=== PATIENT | female | born 1935 | race Caucasian/White ===

== ENCOUNTER 2018-11-21 12:51 | Inpatient (IN) | payer BC ==
[~2018-11-21] VITALS: Ht 157.5 cm; Wt 41.9 kg
[2018-11-21 12:51] VITALS: BP_SYST 117
[2018-11-21 13:55] LABS: HEMOGLOBIN 12.4 g/dL (12.0-16.0); MEAN CORPUSCULAR HEMOGLOBIN 31 pg (27-31); MEAN CORPUSCULAR HGB CONC 34 % (32-36); MEAN CORPUSCULAR VOLUME 91 fL (79.0-98.0); PLATELET COUNT (AUTO) 336 K/uL (130-430); RED BLOOD CELL COUNT(AUTO) 3.97 MIL/uL (4.2-6.2); WHITE BLOOD COUNT (AUTO) 11.4 K/uL (4.8-10.8)
[2018-11-21 14:03] LABS: ALANINE AMINOTRANSFERASE 12 U/L (12-78); ALBUMIN 3.2 g/dL (3.4-4.8); ANION GAP 14 (5-15); ASPARTATE AMINOTRANSFERASE 17 U/L (10-37); CALCIUM 9.6 mg/dL (8.4-11.0); CHLORIDE 101 mmol/L (98-107); GLUCOSE 100 mg/dL (70-99); POTASSIUM 4.6 mmol/L (3.5-5.1); SODIUM SERUM 136 mmol/L (136-145); TOTAL BILIRUBIN 0.6 mg/dL (0.0-1.0); UREA NITROGEN, BLOOD 74 mg/dL (8-21)
[2018-11-21 14:23] LABS: BAND % (MANUAL) 4 % (0-6); BASOPHILS % (MANUAL) 0 % (0-2); EOSINOPHILS % (MANUAL) 0 % (0-7); LYMPHOCYTES % (MANUAL) 10 % (20-46); MONOCYTES % (MANUAL) 1 % (0-11)
[2018-11-21] MEDS ORDERED: CYM30 PO (14:38)
[2018-11-21] MEDS ORDERED: MELA3TAB PO (14:38)
[2018-11-21] MEDS ORDERED: PRO40 PO (14:38)
[2018-11-21] MEDS ORDERED: AMLO5TAB4 PO (14:38)
[2018-11-21] MEDS ORDERED: CITA40TA22 PO (14:38)
[2018-11-21] MEDS ORDERED: DONE10TA44 PO (14:38)
[2018-11-21] MEDS ORDERED: METO50TA7 PO (14:38)
[2018-11-21] MEDS ORDERED: SYN50 PO (14:38)
[2018-11-21 14:49] LABS: INR 0.9 (0.8-1.2); PROTHROMBIN TIME 9.5 SECS (9.5-12.5)
[2018-11-21 15:27] VITALS: BP_SYST 107
[2018-11-21 21:41] VITALS: BP_SYST 133
[2018-11-21] MEDS: DONEPEZIL HCL 5 MG TABLET (ARICEPT) PO SCH (21:47)
[2018-11-22 01:28] VITALS: BP_SYST 135
[2018-11-22 03:15] LABS: BILIRUBIN,URINE NEGATIVE (NEGATIVE); BLOOD, URINE 2+ (NEGATIVE); CLARITY/URINE CLEAR (CLEAR); COLOR,URINE YELLOW (YELLOW); GLUCOSE,URINE NEGATIVE (NEGATIVE); KETONES,URINE TRACE (NEGATIVE); LEUKOCYTE ESTERASE ,URINE 1+ (NEGATIVE); NITRITE, URINE NEGATIVE (NEGATIVE); PH,URINE 8.5 (5.0-8.0); PROTEIN URINE 3+ (NEGATIVE); UROBILINOGEN,URINE 0.2 (0.2-1.0)
[2018-11-22 03:21] LABS: WBC,URINE 80-100 /HPF (0-3)
[2018-11-22 03:22] LABS: BACTERIA,URINE MODERATE /HPF (None Seen)
[2018-11-22] MEDS: LEVOTHYROXINE SODIUM 0.05 MG TABLET PO SCH (06:03)
[2018-11-22 08:05] VITALS: BP_SYST 138
[2018-11-22] MEDS ORDERED: CITALOPRAM HYDROBROMIDE 20 MG TABLET PO SCH ×2 (09:00)
[2018-11-22] MEDS: amLODIPine BESYLATE 5 MG TABLET PO SCH (09:05)
[2018-11-22] MEDS: PANTOPRAZOLE SODIUM 40 MG TAB PO SCH (09:08)
[2018-11-22] MEDS: DULoxetine HCL 30 MG CAPSULE.DR (CYMBALTA) PO SCH (09:08)
[2018-11-22] MEDS: METOPROLOL SUCCINATE 50 MG TAB.SR.24H (TOPROL XL) PO SCH (09:08)
[2018-11-22] MEDS: cefTRIAXone 1 GM IVPB PREMIX 50 ML IV SCH (10:40)
[2018-11-22 12:56] VITALS: BP_SYST 119
[2018-11-22 16:54] VITALS: BP_SYST 122
[2018-11-22] MEDS: DONEPEZIL HCL 5 MG TABLET (ARICEPT) PO SCH (20:21)
[2018-11-22 20:30] VITALS: BP_SYST 118
[2018-11-22 23:08] VITALS: BP_SYST 106
[2018-11-23 05:37] VITALS: BP_SYST 103
[2018-11-23] MEDS: LEVOTHYROXINE SODIUM 0.05 MG TABLET PO SCH (06:06)
[2018-11-23 08:00] VITALS: BP_SYST 141
[2018-11-23] MEDS: METOPROLOL SUCCINATE 50 MG TAB.SR.24H (TOPROL XL) PO SCH (08:08)
[2018-11-23] MEDS: PANTOPRAZOLE SODIUM 40 MG TAB PO SCH (08:08)
[2018-11-23] MEDS: amLODIPine BESYLATE 5 MG TABLET PO SCH (08:09)
[2018-11-23] MEDS: DULoxetine HCL 30 MG CAPSULE.DR (CYMBALTA) PO SCH (08:09)
[2018-11-23] MEDS: cefTRIAXone 1 GM IVPB PREMIX 50 ML IV SCH (09:04)
[2018-11-23 11:57] LABS: ANION GAP 11 (5-15); CALCIUM 9.1 mg/dL (8.4-11.0); CHLORIDE 101 mmol/L (98-107); CREATININE 5.96 mg/dL (0.55-1.30); GLUCOSE 86 mg/dL (70-99); POTASSIUM 3.7 mmol/L (3.5-5.1); SODIUM SERUM 136 mmol/L (136-145); UREA NITROGEN, BLOOD 35 mg/dL (8-21)
[2018-11-23 12:00] VITALS: BP_SYST 154
[2018-11-23] MEDS ORDERED: CILOSTAZOL 50 MG TABLET (PLETAL) PO ONE (12:00)
[2018-11-23] MEDS ORDERED: ALBUTEROL SULFATE 0.083% 2.5 MG/3 ML VIAL.NEB INH PRN (12:00)
[2018-11-23 12:03] LABS: ALBUMIN 2.3 g/dL (3.4-4.8); ASPARTATE AMINOTRANSFERASE 14 U/L (10-37); TOTAL BILIRUBIN 0.4 mg/dL (0.0-1.0)
[2018-11-23 12:21] LABS: ALANINE AMINOTRANSFERASE 5 U/L (12-78)
[2018-11-23 16:00] VITALS: BP_SYST 113
[2018-11-23 16:05] VITALS: BP_SYST 154
[2018-11-23] MEDS: ACETAMINOPHEN 325 MG TABLET PO PRN ×2 (16:41→21:45)
[2018-11-23] MEDS ORDERED: AZITHROMYCIN 250 MG TABLET PO ONE (17:00)
[2018-11-23 20:00] VITALS: BP_SYST 110
[2018-11-23] MEDS ORDERED: ALBUMIN HUMAN 25% 200 ML IV ONE ×3 (20:00→20:15)
[2018-11-23] MEDS: DONEPEZIL HCL 5 MG TABLET (ARICEPT) PO SCH (21:43)
[2018-11-24 00:15] VITALS: BP_SYST 96
[2018-11-24 04:03] VITALS: BP_SYST 132
[2018-11-24] MEDS: LEVOTHYROXINE SODIUM 0.05 MG TABLET PO SCH (05:58)
[2018-11-24 07:02] LABS: BASOPHILS % (AUTO) 0.6 % (0.0-2.0); EOSINOPHILS # (AUTO) 0.2 K/uL (0.0-0.4); EOSINOPHILS % (AUTO) 2.9 % (0.0-4.0); HEMATOCRIT 27.8 % (36-48); HEMOGLOBIN 9.8 g/dL (12.0-16.0); LYMPHOCYTES # (AUTO) 1.1 K/uL (1.0-5.5); MEAN CORPUSCULAR HEMOGLOBIN 32 pg (27-31); MEAN CORPUSCULAR HGB CONC 35 % (32-36); MEAN CORPUSCULAR VOLUME 90 fL (79.0-98.0); MONOCYTES # (AUTO) 0.6 K/uL (0.0-1.0); MONOCYTES % (AUTO) 10.3 % (1.7-9.3); NEUTROPHILS # (AUTO) 3.8 K/uL (1.8-7.7); NEUTROPHILS % (AUTO) 66.2 % (40.0-70.0); PLATELET COUNT (AUTO) 284 K/uL (130-430); RED BLOOD CELL COUNT(AUTO) 3.09 MIL/uL (4.2-6.2); RED CELL DISTRIBUTION WIDTH 12.8 % (9.0-15.0); WHITE BLOOD COUNT (AUTO) 5.7 K/uL (4.8-10.8)
[2018-11-24 07:18] LABS: ALANINE AMINOTRANSFERASE 7 U/L (12-78); ALBUMIN 3.2 g/dL (3.4-4.8); ANION GAP 8 (5-15); ASPARTATE AMINOTRANSFERASE 13 U/L (10-37); CALCIUM 9.1 mg/dL (8.4-11.0); CHLORIDE 101 mmol/L (98-107); CREATININE 3.45 mg/dL (0.55-1.30); GLUCOSE 81 mg/dL (70-99); POTASSIUM 3.1 mmol/L (3.5-5.1); SODIUM SERUM 139 mmol/L (136-145); TOTAL BILIRUBIN 0.6 mg/dL (0.0-1.0); UREA NITROGEN, BLOOD 17 mg/dL (8-21)
[2018-11-24 08:00] VITALS: BP_SYST 124
[2018-11-24] MEDS ORDERED: POTASSIUM CHLORIDE 20 MEQ/PKT PACKET PO ONE (08:15)
[2018-11-24] MEDS ORDERED: AZITHROMYCIN 250 MG TABLET PO SCH (09:00)
[2018-11-24] MEDS ORDERED: NEPHROVITE, (FOLIC ACID/VITAMIN B COMP W-C 1 TAB) PO SCH (09:00)
[2018-11-24] MEDS ORDERED: CILOSTAZOL 50 MG TABLET (PLETAL) PO SCH (09:00)
[2018-11-24] MEDS: METOPROLOL SUCCINATE 50 MG TAB.SR.24H (TOPROL XL) PO SCH (09:02)
[2018-11-24] MEDS: DULoxetine HCL 30 MG CAPSULE.DR (CYMBALTA) PO SCH (09:03)
[2018-11-24] MEDS: PANTOPRAZOLE SODIUM 40 MG TAB PO SCH (09:03)
[2018-11-24] MEDS: amLODIPine BESYLATE 5 MG TABLET PO SCH (09:03)
[2018-11-24] MEDS: cefTRIAXone 1 GM IVPB PREMIX 50 ML IV SCH (09:04)
[2018-11-24] MEDS ORDERED: ALBU8.5H8 INH (10:29)
[2018-11-24] MEDS ORDERED: CEPH250C PO (10:30)
[2018-11-24] MEDS ORDERED: NEPH PO (10:31)
[2018-11-24 10:34] VITALS: BP_SYST 114
[2018-11-24 10:50] VITALS: BP_SYST 93
[2018-11-24 11:11] VITALS: BP_SYST 114
== END 2018-11-24 13:30 | disposition home or self-care (01) | DRG 682 ==
LOC: SED 12:51 → SMU 14:33 → STU 14:46 → SMU 11-22 13:04
PROVIDERS: ADMIT Internal Medicine Hospice and Palliative Medicine; ATTEND Internal Medicine Hospice and Palliative Medicine
PROC: 5A1D70Z Performance of Urinary Filtration, Intermittent, Less than 6 Hours Per Day (ICD-10-PCS; principal; 2018-11-21)
PROC: 5A1D70Z Performance of Urinary Filtration, Intermittent, Less than 6 Hours Per Day (ICD-10-PCS; 2018-11-22)
DX: I12.0 Hypertensive chronic kidney disease with stage 5 chronic kidney disease or end stage renal disease (principal); N18.6 End stage renal disease; N39.0 Urinary tract infection, site not specified; D63.1 Anemia in chronic kidney disease; F03.90 Unspecified dementia, unspecified severity, without behavioral disturbance, psychotic disturbance, mood disturbance, and anxiety; J44.9 Chronic obstructive pulmonary disease, unspecified; Z99.2 Dependence on renal dialysis; Z90.49 Acquired absence of other specified parts of digestive tract; I73.9 Peripheral vascular disease, unspecified
CPT/HCPCS: 36415; 70450-TC; 71045; 73502; 80053; 81000-TC; 82607; 83605; 84443-TC; 84484; 85007; 85025; 85027; 85610-TC; 85730-TC; 87040-TC; 87081; 87086; 87186-TC; 90935; 90937; 93005; 99285; G0378; J0696; J7030; J7060; P9046; Q0144